=== PATIENT | female | born 1995 | race Caucasian/White ===

== ENCOUNTER 2019-10-25 15:23 | Emergency (ER) | payer OTHER, SELFPAY ==
[2019-10-25 15:30] VITALS: BP 125/82; PULSE 97; RESP 18; TEMP 37.1; O2SAT 98
--- NOTE | 2019-10-25 15:43 | ED.EAR ---
HPI - Ear Problem General Chief complaint: Ear Stated complaint: ear pain/pressure Time Seen by Provider: 10/25/19 15:38 Source: patient and RN notes reviewed Mode of arrival: ambulatory Limitations: no limitations History of Present Illness HPI Narrative: Patient presents today with a 3-day history of right ear pressure and echoing. Denies pain, decreased hearing, or drainage. She does report some intermittent congestion in the mornings, but denies rhinorrhea, sore throat, or any other sick symptoms. Reports occasional seasonal allergies, but Denies any this year.She has not tried any [id number] interventions prior to arrival. MD Complaint: other (Right ear pressure) Related Data Home Medications Medication Instructions Recorded Confirmed norelgestromin-ethin.estradiol 1 patch TRANSDERMAL WEEKLY 10/25/19 10/25/19 [Xulanmary] Allergies Allergy/AdvReac Type Severity Reaction Status Date / Time No Known Allergies Allergy Verified 10/25/19 15:37 Review of Systems Review of Systems: Narrative: CONSTITUTIONAL: Denies body aches, fever, chills, or sweats. EYES: Denies visual changes, redness, or discharge. ENT: Denies rhinorrhea, congestion, sore throat, or otalgia.+Right ear pressure and echoing CARDIOVASCULAR: Denies chest pain, palpitations, or edema. RESPIRATORY: Denies cough or dyspnea. GASTROINTESTINAL: Denies abdominal pain, nausea, vomiting, or diarrhea. GENITOURINARY: Denies dysuria or hematuria. SKIN: Denies rash, itching, or wounds. MUSCULOSKELETAL: Denies back pain, joint pain, or myalgia. NEUROLOGIC: Denies headache, numbness, tingling, or weakness. PSYCH: Denies depression or anxiety. PMFSH Social History Social History (Reviewed 10/25/19 @ 15:52 by Nikole Diaz, [facility], ) Smoking status: Current every day smoker Comments At time of signature, I have reviewed and agree with nursing past medical, surgical, social and family history unless otherwise noted. Please see nursing chart for further information. There is no relevant family history pertinent to the presenting complaint Exam Narrative: Exam Narrative: GENERAL: Well-appearing, well-nourished, and in no acute distress. HEAD: Normocephalic, atraumatic. EYES: EOMI. No redness or drainage. Conjunctivae normal. ENT: Mucous membranes pink and moist. Nares clear. No rhinorrhea. TMs normal bilaterally. Clear fluid collection behind right eardrum Without evidence of infection. Throat normal. Uvula midline. NECK: Normal AROM. Supple. No lymphadenopathy. CHEST: No respiratory distress. Clear to auscultation. HEART: Regular rate and rhythm. No murmur appreciated. Normal peripheral pulses. EXTREMITIES: Normal range of motion. No edema. SKIN: Warm, dry, no rash. Capillary refill normal. Normal skin turgor. NEURO: No focal deficits. Alert and oriented x3. Gait steady. PSYCH: Normal affect. No signs of depression or anxiety. Course Vital Signs Vital signs: Temp 98.8, RR 18, pulse 97, pulse ox 98% on room air, blood pressure 125/82. Reviewed. Pt has been instructed to follow up with her PCP regarding her elevated blood pressure today. Medical Decision Making Differential Diagnosis Differential Diagnosis: Otitis media, otitis externa, ruptured TM, serous otitis, eustachian tube dysfunction, cerumen impaction Critical Care Time Critical Care Time Critical Care Time: No Discharge Plan Discharge Clinical Impression: Acute dysfunction of right eustachian tube Patient Disposition: Home, Self-Care Condition: Stable Instructions: Serous Otitis Media (ED) Additional Instructions: You have a buildup of clear fluid behind your eardrum. Please use a steroid nasal spray Such as Flonase or Rhinocort. You may also try decongestant such as Sudafed to help clear the fluid from behind your eardrum. Please follow-up with your PCP with any worsening symptoms. Your blood pressure was elevated above 120/80 today at Urgent Care. This puts you
== END 2019-10-25 15:45 | disposition home or self-care (01) ==
PROVIDERS: Emergency Provider Nurse Practitioner
DX: H69.81 Other specified disorders of Eustachian tube, right ear (principal); F17.200 Nicotine dependence, unspecified, uncomplicated
CPT/HCPCS: 99211; G0463

== ENCOUNTER 2020-07-03 09:45 | Emergency (ER) | payer OTHER, SELFPAY ==
--- NOTE | 2020-07-03 10:02 | ED.FEMALEGU ---
HPI - Female Genitourinary General Chief complaint: Urogenital-Female Stated complaint: Urogenital-Female Time Seen by Provider: 07/03/20 10:29 Source: patient and RN notes reviewed Mode of arrival: ambulatory Limitations: no limitations History of Present Illness HPI Narrative: 24-year-old female presents with concern for urinary tract infection. She reports right low back pressure for 2 to 3 days. She reports 2 to 3-day history of pain. Reports pain is exacerbated by certain sitting positions, bending, twisting. She denies injury or trauma. She denies dysuria, hematuria, frequency, urgency. She started her menstrual period today. She reports she took Tylenol last night which mildly helped the pain. She denies any loss of bowel or bladder function, perianal anesthesia, nausea, vomiting, abdominal pain, weakness in any extremity. MD elicited complaint: UTI Related Data Home Medications Medication Instructions Recorded Confirmed sertraline 50 mg PO DAILY 07/03/20 07/03/20 Allergies Allergy/AdvReac Type Severity Reaction Status Date / Time No Known Allergies Allergy Verified 07/03/20 10:35 Review of Systems Review of Systems: Narrative: CONSTITUTIONAL: Denies malaise, chills, sweats, or fever. CARDIOVASCULAR: Denies chest pain, palpitations, or edema. RESPIRATORY: Denies cough or dyspnea. GASTROINTESTINAL: Denies abdominal pain, nausea, vomiting, diarrhea GENITOURINARY: Denies frequency, urgency, dysuria or hematuria. SKIN: Denies redness, bruising MUSCULOSKELETAL: Reports right low back pain. Denies myalgia. NEUROLOGIC: Denies numbness, weakness, or headache. All systems reviewed & are unremarkable except as noted in HPI and below PMFSH Social History Social History Smoking status: Current every day smoker Comments At time of signature, agree with nursing past medical, surgical, social and family history. There is no relevant family history pertinent to the presenting complaint Exam Narrative: Exam Narrative: GENERAL: Well-appearing, well-nourished, and in no acute distress. HEAD: Normocephalic, atraumatic. EYES: PERRLA and EOMI. NECK: Supple. No lymphadenopathy. CHEST: Clear to auscultation. No respiratory distress. HEART: Regular rate and rhythm. Distal pulses palpable and equal, cap refill <3 seconds ABDOMEN: Soft, nontender, nondistended, normal active bowel sounds, no palpable or pulsatile masses. No CVA tenderness MUSCULOSKELETAL: Normal range of motion and strength in all extremities; 5/5 strength with hip flexion and extension, dorsiflexion and extension, knee flexion and extension, plantar flexion and extension. Normal sensation in dermatomal distributions with sensitivity to light touch and pain. No midline back tenderness to palpation. No paraspinal tenderness. Transfers from lying to sitting to standing. SKIN: Warm, dry, no rash. No ecchymosis, erythema, open wounds to back. NEURO: No focal deficits. Alert and oriented x3. Reflexes intact. Normal gait. PSYCH: Normal mood and affect Course Course Emergency Course: Patient is aware of diagnosis, understands and agrees to treatment plan. Anticipatory guidance given. Patient agrees to follow-up as directed and is aware of reasons to seek care at the emergency department. Portions of this record may have been created with voice recognition software Vital Signs Vital signs: Vital Signs Temperature 97.8 F 07/03/20 10:10 Pulse Rate 81 07/03/20 10:10 Respiratory Rate 18 07/03/20 10:10 Blood Pressure 158/86 H 07/03/20 10:10 Pulse Oximetry 100 07/03/20 10:10 Temperature 97.8 F 07/03/20 10:10 Pulse Rate 81 07/03/20 10:10 Respiratory Rate 18 07/03/20 10:10 Blood Pressure 158/86 H 07/03/20 10:10 Pulse Oximetry 100 07/03/20 10:10 Reviewed. MDM - Female Genitourinary MDM Narrative Medical decision making narrative: Exam findings and UA show no acute con
[2020-07-03 10:10] VITALS: BP 158/86; PULSE 81; RESP 18; TEMP 36.6; O2SAT 100
== END 2020-07-03 11:02 | disposition home or self-care (01) ==
PROVIDERS: Emergency Provider Nurse Practitioner; PCP Nurse Practitioner Adult Health
DX: M54.5 Low back pain (principal); F41.9 Anxiety disorder, unspecified; F17.200 Nicotine dependence, unspecified, uncomplicated
CPT/HCPCS: 81003; 99213; G0463

== ENCOUNTER 2020-07-14 14:28 | Emergency (ER) | payer OTHER, SELFPAY ==
--- NOTE | ~2020-07-14 | XR_ITS ---
EXAMINATION: XR chest 2V EXAM DATE: 07/14/2020 15:07 INDICATION: Pleasant positive for COVID 07/11. Shortness of breath. TECHNIQUE: Frontal and lateral projections of the chest obtained and reviewed. There is no prior mark dy for comparison. FINDINGS: The lungs are clear. There are no pleural effusions. The cardiomediastinal silhouette is within normal limits. There is no pneumothorax suspected. The bones and soft tissues are unremarkab le. IMPRESSION: No acute cardiopulmonary findings. Reviewed, dictated and finalized at location A. ENT OUTREACH COORDINATOR
--- NOTE | 2020-07-14 14:31 | ED.SOB ---
HPI - SOB/Dyspnea General Chief Complaint: Shortness of Breath/Dyspnea Stated Complaint: Asthma issues with Covid Time Seen by Provider: 07/14/20 15:01 Source: patient and RN notes reviewed Mode of arrival: ambulatory Limitations: no limitations History of Present Illness HPI Narrative: 24-year-old female presents with concern for shortness of breath after testing positive for Covid. Reports she is 8 days into symptoms, began having shortness of breath yesterday. She reports shortness of breath only with exertion, not at rest. She denies fever, body aches, chills, sweats, loss of taste or smell. Reports mild nasal congestion. MD elicited complaint: shortness of breath Related Data Home Medications Medication Instructions Recorded Confirmed sertraline 50 mg PO DAILY 07/03/20 07/14/20 Allergies Allergy/AdvReac Type Severity Reaction Status Date / Time No Known Allergies Allergy Verified 07/14/20 14:54 Review of Systems Review of Systems: Narrative: CONSTITUTIONAL: Denies malaise, chills, sweats, or fever. EYES: Denies visual changes, redness, or discharge. ENT: Reports rhinorrhea, congestion. Denies sinus pain, otalgia and sore throat. CARDIOVASCULAR: Denies chest pain, palpitations, or edema. RESPIRATORY: Reports cough, exertional dyspnea. GASTROINTESTINAL: Denies abdominal pain, nausea, vomiting, diarrhea SKIN: Denies rash or itching. MUSCULOSKELETAL: Denies myalgia. NEUROLOGIC: Denies headache. All systems reviewed & are unremarkable except as noted in HPI and below PMFSH Social History Social History Smoking status: Current every day smoker Comments At time of signature, agree with nursing past medical, surgical, social and family history. There is no relevant family history pertinent to the presenting complaint Exam Narrative: Exam Narrative: GENERAL: Well-appearing, well-nourished, and in no acute distress. HEAD: Normocephalic EYES: PERRLA, conjunctivae clear ENT: Nares clear. Mucous membranes moist. NECK: Supple. No lymphadenopathy CHEST: Clear to auscultation, breath sounds equal. No wheezing, rhonchi, rales, or stridor. No respiratory distress, speaks in full sentences. HEART: Regular rate and rhythm. No murmur heard. SKIN: Warm, dry, no rash. NEURO: Alert and oriented x3. PSYCH: Normal mood and affect Course Course Emergency Course: Patient is aware of diagnosis, understands and agrees to treatment plan. Anticipatory guidance given. Patient agrees to follow-up as directed and is aware of reasons to seek care at the emergency department. Portions of this record may have been created with voice recognition software Vital Signs Vital signs: Vital Signs Temperature 98.1 F 07/14/20 14:38 Pulse Rate 93 07/14/20 14:38 Respiratory Rate 20 07/14/20 14:38 Blood Pressure 133/87 07/14/20 14:38 Pulse Oximetry 96 07/14/20 14:38 Temperature 98.1 F 07/14/20 14:38 Pulse Rate 93 07/14/20 14:38 Respiratory Rate 20 07/14/20 14:38 Blood Pressure 133/87 07/14/20 14:38 Pulse Oximetry 96 07/14/20 14:38 Reviewed. MDM - SOB/Dyspnea MDM Narrative Medical decision making narrative: Differential diagnosis considered: Francis virus, strep pharyngitis, allergic rhinitis, upper respiratory tract infection, sinusitis, rhinosinusitis, nasopharyngitis. viral pharyngitis, otitis media, otitis externa, pneumonia, bronchitis, viral cough syndrome, viral syndrome, and influenza. Exam findings show no acute concerns or changes; patient is non-toxic appearing and is in no distress. Patient is appropriate for outpatient treatment and follow-up. Imaging Data My impression: Images reviewed, interpreted by radiologist, agree, see report. Radiologist's impression: EXAMINATION: XR chest 2V EXAM DATE: 07/14/2020 15:07 INDICATION: Pleasant positive for COVID 20. Shortness of breath. TECHNIQUE: Frontal and lateral projections of the arun
[2020-07-14 14:38] VITALS: BP 133/87; PULSE 93; RESP 20; TEMP 36.7; O2SAT 96
== END 2020-07-14 15:30 | disposition home or self-care (01) ==
PROVIDERS: Emergency Provider Nurse Practitioner; PCP Nurse Practitioner Adult Health
DX: R06.02 Shortness of breath (principal); B94.8 Sequelae of other specified infectious and parasitic diseases; F17.200 Nicotine dependence, unspecified, uncomplicated; F41.9 Anxiety disorder, unspecified
CPT/HCPCS: 71046; 99213; G0463

== ENCOUNTER 2020-08-08 18:32 | Emergency (ER) | payer OTHER, SELFPAY ==
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
[2020-08-08 18:48] VITALS: BP 166/99; PULSE 96; RESP 20; TEMP 37.6; O2SAT 99
== END 2020-08-08 19:43 | disposition home or self-care (01) ==
PROVIDERS: Emergency Provider Nurse Practitioner Family; PCP Nurse Practitioner Adult Health
DX: Z04.1 Encounter for examination and observation following transport accident (principal); M25.532 Pain in left wrist; M54.6 Pain in thoracic spine; F41.9 Anxiety disorder, unspecified
CPT/HCPCS: 72072; 73110; 99214; G0463

== ENCOUNTER 2021-02-27 09:29 | Emergency (ER) | payer OTHER, SELFPAY ==
[2021-02-27 09:44] VITALS: BP 146/89; PULSE 91; RESP 14; TEMP 36.6; O2SAT 98
--- NOTE | 2021-02-27 10:55 | ED.DENTAL ---
HPI - Dental/Oral General Chief complaint: Dental/Oral Stated complaint: tooth pain Source: patient Mode of arrival: ambulatory Limitations: no limitations History of Present Illness HPI Narrative: Patient is a 25-year-old female who presents complaining of right lower dental pain x3 to 4 days. She reports noting an abscess yesterday that she reports ruptured. She denies fever or systemic complaints. She denies significant medical history. Patient also requesting list of dental offices. She denies taking [id number] medications prior to arrival. MD Complaint: tooth pain Related Data Home Medications Medication Instructions Recorded Confirmed sertraline 50 mg PO DAILY 07/03/20 02/27/21 Allergies Allergy/AdvReac Type Severity Reaction Status Date / Time No Known Allergies Allergy Verified 02/27/21 10:12 Review of Systems Review of Systems: CONSTITUTIONAL: Denies fever, chills, or sweats. EYES: Denies visual changes, redness, or discharge. ENT: Denies rhinorrhea, congestion, sore throat, or otalgia. Reports right lower dental pain CARDIOVASCULAR: Denies chest pain, palpitations, or edema. RESPIRATORY: Denies cough or dyspnea. GASTROINTESTINAL: Denies abdominal pain, nausea, vomiting, or diarrhea. GENITOURINARY: Denies dysuria or hematuria. SKIN: Denies rash or itching. MUSCULOSKELETAL: Denies back pain, joint pain, or myalgia. NEUROLOGIC: Denies headache, numbness, dizziness, or weakness. PSYCHIATRIC: Denies anxiety or depression. [facility] Past Medical History Medical History Anxiety Social History Social History (Updated 02/27/21 @ 11:00 by INDIA Hager) Smoking status: Current every day smoker Alcohol intake: current Alcohol use details: Occasional Substance use: never Living arrangements: with family Comments At the time of signature, I have reviewed and agree with nursing past medical, surgical, social, and family history unless otherwise noted. Please see nursing chart for further information. There is no relevant family history pertinent to the presenting complaint. Exam Narrative: GENERAL: Well-appearing, well-nourished, and in no acute distress. HEAD: Normocephalic, atraumatic. EYES: EOMI. No redness or drainage. Conjunctiva are normal. ENT: Mucous membranes pink and moist. Periapical abscess noted to right lower wisdom tooth. CHEST: No respiratory distress. HEART: Regular rate and rhythm. EXTREMITIES: Normal range of motion. No edema. SKIN: Warm, dry, no rash. NEURO: No focal deficits. Alert and oriented x3. Gait steady. PSYCH: Normal affect. No signs of depression or anxiety. Course Vital Signs Vital signs: Vital Signs Temperature 36.6 C 02/27/21 09:44 Pulse Rate 91 02/27/21 09:44 Respiratory Rate 14 02/27/21 09:44 Blood Pressure 146/89 H 02/27/21 09:44 Pulse Oximetry 98 02/27/21 09:44 Temperature 36.6 C 02/27/21 09:44 Pulse Rate 91 02/27/21 09:44 Respiratory Rate 14 02/27/21 09:44 Blood Pressure 146/89 H 02/27/21 09:44 Pulse Oximetry 98 02/27/21 09:44 At the time of signature, I have reviewed and agree with nursing past medical, surgical, social, and family history unless otherwise noted. Please see nursing chart for further information. There is no relevant family history pertinent to the presenting complaint. MDM - Dental/Oral MDM Narrative Medical decision making narrative: Patient has poor dentition. Multiple caries dental caries noted. Dental abscess noted to right lower wisdom tooth. Patient be started on antibiotics at this time. List of dental referrals given. Patient stable for discharge home with outpatient follow-up as needed. Differential Diagnosis Differential diagnosis: Likely gingival abscess, dental caries, toothache, dental abscess and fracture of tooth Critical Care Time Critical Care Time Critical Care Time: No Discharge Plan Dischar
== END 2021-02-27 11:05 | disposition home or self-care (01) ==
PROVIDERS: Emergency Provider Nurse Practitioner; PCP Nurse Practitioner Adult Health
DX: K04.7 Periapical abscess without sinus (principal); F17.200 Nicotine dependence, unspecified, uncomplicated; F41.9 Anxiety disorder, unspecified
CPT/HCPCS: 99213; G0463

== ENCOUNTER 2022-01-12 17:50 | Emergency (ER) | payer OTHER, SELFPAY ==
[2022-01-12 17:58] VITALS: BP 130/85; PULSE 100; RESP 16; TEMP 36.9; O2SAT 100
--- NOTE | 2022-01-12 18:27 | ED.GENADULT ---
HPI - General Adult General Chief complaint: Urogenital-Female Stated complaint: Possible yeast infection Source: patient Mode of arrival: ambulatory Limitations: no limitations History of Present Illness HPI narrative: Patient presents for evaluation of vaginal irritation and discharge for the last 2 days. She reports vaginal pruritus and feels like her skin is falling off . She reports a warm sensation. Vaginal discharge is white in appearance. She denies any vaginal bleeding. No urinary symptoms. No fever, chills, nausea, vomiting, abdominal or back pain. She is sexually active with 1 male partner, never using condoms. He is asymptomatic. LMP last week. She is not on contraception. No hx of STI. She applied some triamcinolone cream to her external genitalia and indicates it almost immediately alleviated the burning sensation she experienced in her genital region. Related Data Home Medications Medication Instructions Recorded Confirmed sertraline 50 mg tablet 50 mg PO DAILY 07/03/20 01/12/22 sertraline 25 mg tablet 25 mg PO DAILY 01/12/22 01/12/22 Allergies Allergy/AdvReac Type Severity Reaction Status Date / Time No Known Allergies Allergy Verified 01/12/22 18:16 Review of Systems Review of Systems: CONSTITUTIONAL: Denies fever, chills, or sweats. EYES: Denies visual changes, redness, or discharge. ENT: Denies rhinorrhea, congestion, sore throat, or otalgia. CARDIOVASCULAR: Denies chest pain, palpitations, or edema. RESPIRATORY: Denies cough or dyspnea. GASTROINTESTINAL: Denies abdominal pain, nausea, vomiting, or diarrhea. GENITOURINARY: Reports vaginal pruritus, burning sensation, warm sensation and white discharge. Denies vaginal bleeding. Denies any urinary symptoms SKIN: Denies rash or itching. MUSCULOSKELETAL: Denies back pain, joint pain, or myalgia. NEUROLOGIC: Denies headache, numbness, dizziness, or weakness. PSYCHIATRIC: Denies anxiety or depression. [facility] Past Medical History Medical History Anxiety Surgical History Surgical History No pertinent past surgical history Family History Family History Mother Family history non-contributory Social History Social History Smoking status: Current every day smoker Tobacco type: e-cigarettes/vaping Alcohol intake: current Alcohol use details: Occasional Substance use: never Living arrangements: with family Gender identity (if verbalized by the patient): Female Sexual Orientation (if Verbalized by the Patient): Straight or Heterosexual Spiritual care concerns: No Exam Narrative: GENERAL: Well-appearing, well-nourished, and in no acute distress. HEAD: Normocephalic, atraumatic. EYES: PERRLA and EOMI. ENT: Nares clear, no rhinorrhea or epistaxis. Mucous membranes moist. Oropharynx without tonsillar hypertrophy exudate or other lesions. Bilateral TMs pearly muñoz nonbulging NECK: Supple. No adenopathy or masses. No carotid bruits or JVD CHEST: Clear to auscultation. No respiratory distress. No wheezes rales or rhonchi HEART: Regular rate and rhythm. No murmur heard. Normal peripheral pulses. ABDOMEN: Soft, nontender, nondistended, normal active bowel sounds. GENITAL: No external genital lesions. No adnexal tenderness. No cervical motion tenderness. Small amount of thick mucus consistent white drainage in vaginal vault. Cervical os friable EXTREMITIES: Normal range of motion. No edema. SKIN: Warm, dry, no rash. NEURO: No focal deficits. Alert and oriented x3. PSYCH: Normal mood and affect. Course Course Emergency Course: This is a 26-year-old female who presented for evaluation of vaginal discharge. We discussed risks versus benefits of treating for STIs today versus waiting
--- NOTE | 2022-01-12 19:04 | PC.NURSE ---
NO URINE CULTURE PER PROVIDER.
[2022-01-12] MEDS: cefTRIAXone 500 MG, LIDOCAINE HCL 1% LOCAL INJ 1 ML IM (19:15)
== END 2022-01-12 19:35 | disposition home or self-care (01) ==
PROVIDERS: Emergency Provider Nurse Practitioner; PCP Family Medicine
DX: N76.0 Acute vaginitis (principal); F17.290 Nicotine dependence, other tobacco product, uncomplicated; F41.9 Anxiety disorder, unspecified
CPT/HCPCS: 81003; 81025; 87070; 87147; 87491; 87591; 87661; 96372; 99214; G0463; J0696

== ENCOUNTER 2022-06-03 17:06 | Emergency (ER) | payer OTHER, SELFPAY ==
[2022-06-03 17:18] VITALS: BP 132/77; PULSE 100; RESP 20; TEMP 36.9; O2SAT 99
--- NOTE | 2022-06-03 18:46 | ED.EYEPROB ---
HPI - Eye Problem General Chief complaint: Eye Problems Stated complaint: Eye Problem Time Seen by Provider: 06/03/22 18:46 Source: patient, RN notes reviewed and old records reviewed Mode of arrival: ambulatory Limitations: no limitations History of Present Illness HPI Narrative: 26 year old female [facility] with complaints of Left eye redness with irritation and yellow/greenish drainage for past 2 days with itching. Patient reports that she has been using OTC Visine and pink eye gtts. Patient denies any sharp pain to her eyes, visual acuity right 20/50, Left 20/40 without corrective lens. Patient reports that right eye was bad last week but got better.Patient denies any fevers nasal congestion or any other ill symptoms. MD chief complaint: eye redness and other (Drainage) Onset (ago): day(s) (2) Location: left eye Treatments Prior to Arrival: OTC eye drops Related Data Home Medications Medication Instructions Recorded Confirmed sertraline 50 mg tablet 50 mg PO DAILY 07/03/20 06/03/22 Allergies Allergy/AdvReac Type Severity Reaction Status Date / Time No Known Allergies Allergy Verified 06/03/22 17:50 Review of Systems Review of Systems: CONSTITUTIONAL: Denies fever, chills, or sweats. EYES: Denies visual changes. Reports redness,, irritation,yellow green discharge left eye with itching ENT: Denies rhinorrhea, congestion, sore throat, or otalgia. CARDIOVASCULAR: Denies chest pain, palpitations, or edema. RESPIRATORY: Denies cough or dyspnea. SKIN: Denies rash or itching. NEUROLOGIC: Denies headache All systems reviewed & are unremarkable except as noted in HPI and below PMFSH Past Medical History Medical History Anxiety Surgical History Surgical History No pertinent past surgical history Family History Family History Mother Family history non-contributory Social History Social History (Updated 06/14/22 @ 22:11 by Arabella Friemdan NP) Smoking status: Current every day smoker Tobacco type: e-cigarettes/vaping Alcohol intake: current Alcohol use details: Occasional Substance use type: marijuana Gender identity (if verbalized by the patient): Female Sexual Orientation (if Verbalized by the Patient): Straight or Heterosexual Spiritual care concerns: No Comments At time of signature, agree with nursing past medical, surgical, social and family history. There is no relevant family history pertinent to the presenting complaint Exam Narrative: GENERAL: Well-appearing, well-nourished, and in no acute distress. HEAD: Normocephalic, atraumatic. EYES: PERRLA and EOMI. Upper and lower eyelids unremarkable. No periorbital cellulitis noted. Sclera and conjunctivae injected left eye, with yellow/greenish drainage and itching.Denies any sharp pain to eyes or visual changes ENT: Nares clear, no rhinorrhea or epistaxis. Mucous membranes moist. NECK: Supple.no lymphadenopathy CHEST: Clear to auscultation. No respiratory distress.SAO2 99% on room air HEART: Regular rate and rhythm. No murmur heard. Normal peripheral pulses. SKIN: Warm, dry, no rash. NEURO: No focal deficits. Alert and oriented x3. Course Course Emergency Course: Patient is aware of diagnosis, understands and agrees to treatment plan. Anticipatory guidance given. Patient agrees to follow-up as directed and is aware of reasons to seek care at the emergency department. Portions of this record may have been created with voice recognition software Level of Care: Express Care Visit Vital Signs Vital signs: Vital Signs Temperature 36.9 C 06/03/22 17:18 Pulse Rate 100 06/03/22 17:18 Respiratory Rate 20 06/03/22 17:18 Blood Pressure 132/77 06/03/22 17:18 Pulse Oximetry 99 06/03/22 17:18 Oxygen Delivery Room Air 06/03/22 17:18 T
== END 2022-06-03 18:55 | disposition home or self-care (01) ==
PROVIDERS: Emergency Provider Registered Nurse; PCP Family Medicine
DX: H10.32 Unspecified acute conjunctivitis, left eye (principal); F17.290 Nicotine dependence, other tobacco product, uncomplicated; F12.90 Cannabis use, unspecified, uncomplicated; F41.9 Anxiety disorder, unspecified
CPT/HCPCS: 99213; G0463

== ENCOUNTER 2022-07-09 15:18 | Emergency (ER) | payer OTHER, SELFPAY ==
[2022-07-09 15:37] VITALS: BP 146/79; PULSE 80; RESP 16; TEMP 36.8; O2SAT 98
--- NOTE | 2022-07-09 15:49 | ED.URI ---
HPI - URI/Sore Throat General Chief Complaint: Upper Respiratory Infection Stated Complaint: Sore Throat Time Seen by Provider: 07/09/22 15:49 Source: patient Mode of arrival: ambulatory Limitations: no limitations History of Present Illness HPI Narrative: 26-year-old female presents with complaint of sore throat, fatigue, headaches, body aches, chills for 3 days. Afebrile. Denies nausea vomiting diarrhea. Reports strep exposure from her cousin To she was drinking after. All systems reviewed and negative except as noted above. Related Data Home Medications Medication Instructions Recorded Confirmed sertraline 50 mg tablet 50 mg PO DAILY 07/03/20 07/09/22 Allergies Allergy/AdvReac Type Severity Reaction Status Date / Time No Known Allergies Allergy Verified 07/09/22 15:46 Review of Systems Review of Systems: CONSTITUTIONAL: Denies fever, chills, or sweats. Reports fatigue. EYES: Denies visual changes, redness, or discharge. ENT: Denies rhinorrhea, congestion. Reports sore throat. denies otalgia. CARDIOVASCULAR: Denies chest pain, palpitations, or edema. RESPIRATORY: Denies cough or dyspnea. GASTROINTESTINAL: Denies abdominal pain, nausea, vomiting, or diarrhea. GENITOURINARY: Denies dysuria or hematuria. SKIN: Denies rash or itching. MUSCULOSKELETAL: Denies back pain, joint pain, or myalgia. NEUROLOGIC: reports headache. Denies numbness, or weakness. PSYCHIATRIC: Denies anxiety or depression. All other systems reviewed are negative, except as documented in HPI. [facility] Past Medical History Medical History Anxiety Surgical History Surgical History No pertinent past surgical history Family History Family History Mother Family history non-contributory Social History Social History (Updated 06/14/22 @ 22:11 by Arabella Friedman NP) Smoking status: Current every day smoker Tobacco type: e-cigarettes/vaping Alcohol intake: current Alcohol use details: Occasional Substance use type: marijuana Gender identity (if verbalized by the patient): Female Sexual Orientation (if Verbalized by the Patient): Straight or Heterosexual Spiritual care concerns: No Comments At time of signature, agree with nursing past medical, surgical, social and family history. There is no relevant family history pertinent to the presenting complaint. Exam Narrative: GENERAL: This is a well-nourished, well-developed patient, in no apparent distress. HEAD: normocephalic, atraumatic. EYES: PERRL. Sclera clear/white. Vision is grossly intact. EARS: External ears normal, auditory canals clear and without drainage, TMs normal without perforation. Hearing grossly intact. NOSE: External nose normal with no obvious nasal discharge, nares without redness, no rhinorrhea. THROAT: Mucous membranes moist, erythema, tonsils 3+ bilaterally without exudate NECK: Neck supple, non-tender without lymphadenopathy, masses or thyromegaly. CARDIOVASCULAR: Regular rate and rhythm without murmurs, gallops, or rubs. RESPIRATORY: Clear to auscultation. Breath sounds equal bilaterally. No wheezes, rales, or rhonchi. SKIN: warm, Dry, intact with no suspicious lesions or rash, good texture and turgor. NEURO: awake, alert, and oriented to person, place and time. Course Course Level of Care: Express Care Visit Vital Signs Vital signs: Vital Signs Temperature 36.8 C 07/09/22 15:37 Pulse Rate 80 07/09/22 15:37 Respiratory Rate 16 07/09/22 15:37 Blood Pressure 146/79 H 07/09/22 15:37 Pulse Oximetry 98 07/09/22 15:37 Oxygen Delivery Room Air 07/09/22 15:37 Temperature 36.8 C 07/09/22 15:37 Pulse Rate 80 07/09/22 15:37 Respiratory Rate 16 07/09/22 15:37 Blood Pressure 146/79 H 07/09/22 15:37 Pulse Oximetry 98 07/09/22 15:37 Ox
== END 2022-07-09 16:03 | disposition home or self-care (01) ==
PROVIDERS: Emergency Provider Nurse Practitioner Family; PCP Family Medicine
DX: J02.0 Streptococcal pharyngitis (principal); F17.290 Nicotine dependence, other tobacco product, uncomplicated; F41.9 Anxiety disorder, unspecified
CPT/HCPCS: 87880; 99213; G0463

== ENCOUNTER 2022-11-18 17:33 | Emergency (ER) | payer OTHER, SELFPAY ==
[2022-11-18 17:48] VITALS: BP 155/88; PULSE 100; RESP 20; TEMP 37.1; O2SAT 100
--- NOTE | 2022-11-18 18:12 | ED.DENTAL ---
HPI - Dental/Oral General Chief complaint: Dental/Oral Stated complaint: tooth pain Source: patient Mode of arrival: ambulatory Limitations: no limitations History of Present Illness HPI Narrative: Patient presents for evaluation of right lower dental pain. She has a known dental fracture and an impacted wisdom tooth. She indicates she has pain intermittently over the past several years. The last 2-3 days pain has returned. She rates her pain 7/10 severity, without descriptive quality. No fever, chills, trismus, problems handling secretions, drainage. In the past ibuprofen has been helpful. She does not feel abx necessary as they have not been in the past. Furthermore, she had some leftover abx and took two doses without improvement in her symptoms. States no chance of . She uses electronic cigarette and also smokes marijuana. Related Data Home Medications Medication Instructions Recorded Confirmed sertraline 50 mg tablet 50 mg PO DAILY 07/03/20 11/18/22 Allergies Allergy/AdvReac Type Severity Reaction Status Date / Time No Known Allergies Allergy Verified 11/18/22 18:02 Review of Systems Review of Systems: CONSTITUTIONAL: Denies fever, chills, or sweats. EYES: Denies visual changes, redness, or discharge. ENT: Reports right lower dental pain. Denies rhinorrhea, congestion, sore throat, or otalgia. CARDIOVASCULAR: Denies chest pain, palpitations, or edema. RESPIRATORY: Denies cough or dyspnea. GASTROINTESTINAL: Denies abdominal pain, nausea, vomiting, or diarrhea. GENITOURINARY: Denies dysuria or hematuria. SKIN: Denies rash or itching. MUSCULOSKELETAL: Denies back pain, joint pain, or myalgia. NEUROLOGIC: Denies headache, numbness, dizziness, or weakness. PSYCHIATRIC: Denies anxiety or depression. [facility] Past Medical History Medical History Anxiety Surgical History Surgical History No pertinent past surgical history Family History Family History Mother Family history non-contributory Social History Social History Smoking status: Current every day smoker Tobacco type: e-cigarettes/vaping Alcohol intake: current Alcohol use details: Occasional Substance use type: marijuana Living arrangements: with family Gender identity (if verbalized by the patient): Female Sexual Orientation (if Verbalized by the Patient): Straight or Heterosexual Spiritual care concerns: No Exam Narrative: GENERAL: Well-appearing, well-nourished, and in no acute distress. HEAD: Normocephalic, atraumatic. EYES: PERRLA and EOMI. ENT: Nares clear, no rhinorrhea or epistaxis. Mucous membranes moist. Oropharynx without tonsillar hypertrophy exudate or other lesions. Tooth number 31 is fractured. There is no visible or palpable abscess. Bilateral TMs pearly muñoz nonbulging NECK: Supple. No adenopathy or masses. No carotid bruits or JVD CHEST: Clear to auscultation. No respiratory distress. No wheezes rales or rhonchi HEART: Regular rate and rhythm. No murmur heard. Normal peripheral pulses. ABDOMEN: Soft, nontender, nondistended, normal active bowel sounds. EXTREMITIES: Normal range of motion. No edema. SKIN: Warm, dry, no rash. NEURO: No focal deficits. Alert and oriented x3. PSYCH: Normal mood and affect. Course Course Emergency Course: This is a 26 year old female who presented for evaluation of right lower dental pain. She simply requested a prescription for ibuprofen 600 mg. There is no visible or palpable abscess. I offered to give her a script for abx in event she has an early infection. She declined. Follow up with dentist. Advised on smoking cessation. Go to ER for worsening symptoms. Pt in agreement with plan of care. Level of Care: E
== END 2022-11-18 18:15 | disposition home or self-care (01) ==
PROVIDERS: Emergency Provider Nurse Practitioner; PCP Family Medicine
DX: S02.5XXA Fracture of tooth (traumatic), initial encounter for closed fracture (principal); F41.9 Anxiety disorder, unspecified; F17.219 Nicotine dependence, cigarettes, with unspecified nicotine-induced disorders; X58.XXXA Exposure to other specified factors, initial encounter
CPT/HCPCS: 99213; G0463

== ENCOUNTER 2022-12-18 16:14 | Emergency (ER) | payer OTHER, SELFPAY ==
[2022-12-18 16:23] VITALS: BP 125/75; PULSE 93; RESP 16; TEMP 36.6; O2SAT 98
--- NOTE | 2022-12-18 16:36 | ED.FEMALEGU ---
HPI - Female Genitourinary General Chief complaint: Urogenital-Female Stated complaint: Urinary Problem Source: patient and RN notes reviewed Limitations: no limitations History of Present Illness HPI Narrative: Patient is a 26-year-old female who presents to the [facility] with an odor to her urine for the past 3-4 days. Patient denies dysuria, hematuria, urinary frequency, and urinary urgency. She denies flank pain or abdominal pain. Denies recent fevers. States that there is a chance for . Related Data Home Medications Medication Instructions Recorded Confirmed sertraline 50 mg tablet 50 mg PO DAILY 07/03/20 12/18/22 Allergies Allergy/AdvReac Type Severity Reaction Status Date / Time No Known Allergies Allergy Verified 11/18/22 18:02 Review of Systems Review of Systems: CONSTITUTIONAL: Denies fever, chills, or sweats. EYES: Denies visual changes, redness, or discharge. ENT: Denies otalgia and sore throat CARDIOVASCULAR: Denies chest pain, palpitations, or edema. RESPIRATORY: Denies cough or dyspnea. GASTROINTESTINAL: Denies abdominal pain, nausea, vomiting, or diarrhea. GENITOURINARY: Denies dysuria or hematuria. Reports odor to urine. SKIN: Denies rash or itching. MUSCULOSKELETAL: Denies back pain, joint pain, or myalgia. NEUROLOGIC: Denies headache, numbness, or weakness. Pertinent positives per HPI. [facility] Past Medical History Medical History Anxiety Surgical History Surgical History No pertinent past surgical history Family History Family History Mother Family history non-contributory Social History Social History Smoking status: Current every day smoker Tobacco type: e-cigarettes/vaping Alcohol intake: current Alcohol use details: Occasional Substance use type: marijuana Living arrangements: with family Gender identity (if verbalized by the patient): Female Sexual Orientation (if Verbalized by the Patient): Straight or Heterosexual Spiritual care concerns: No Comments At the time of my signature, I reviewed and agree with the nursing past medical, surgical, social, and family history. There is no relevant family history pertinent to the patient complaint. Exam Narrative: GENERAL: This is a well-nourished, well-developed patient, in no apparent distress. HEAD: normocephalic, atraumatic. EYES: Sclera clear/white. Vision is grossly intact. EARS: External ears normal. Hearing grossly intact. NOSE: External nose normal with no obvious nasal discharge, nares without redness, no rhinorrhea. THROAT: Mucous membranes moist, posterior pharynx clear. NECK: Neck supple, non-tender without lymphadenopathy, masses or thyromegaly. CARDIOVASCULAR: Regular rate and rhythm without murmurs, gallops, or rubs. RESPIRATORY: Clear to auscultation. Breath sounds equal bilaterally. No wheezes, rales, or rhonchi. GASTROINTESTINAL: Abdomen soft, non-tender, nondistended. Bowel sounds are active. No hepato-splenomegaly, or palpable masses. No guarding. SKIN: warm, intact with no suspicious lesions or rash, good texture and turgor. NEURO: awake, alert, and oriented to person, place and time. There were no obvious focal neurologic abnormalities. BACK: Nontender without deformity or crepitance. No flank tenderness. Course Course Level of Care: Express Care Visit Vital Signs Vital signs: Vital Signs Temperature 97.9 F 12/18/22 16:23 Pulse Rate 93 12/18/22 16:23 Respiratory Rate 16 12/18/22 16:23 Blood Pressure 125/75 12/18/22 16:23 Pulse Oximetry 98 12/18/22 16:23 Oxygen Delivery Room Air 12/18/22 16:23 Temperature 97.9 F 12/18/22 16:23 Pulse Rate 93 12/18/22 16:23 Respiratory Rate 16 12/18/22 16:23 Blood Pressure 1
== END 2022-12-18 16:47 | disposition home or self-care (01) ==
PROVIDERS: Emergency Provider Nurse Practitioner; PCP Nurse Practitioner Family
DX: R82.998 Other abnormal findings in urine (principal); F17.290 Nicotine dependence, other tobacco product, uncomplicated; F41.9 Anxiety disorder, unspecified
CPT/HCPCS: 81003; 81025; 99212; G0463

== ENCOUNTER 2023-05-22 10:53 | Emergency (ER) | payer OTHER, SELFPAY ==
--- NOTE | 2023-05-22 10:57 | ED.EAR ---
HPI - Ear Problem General Chief complaint: Ear Stated complaint: Right Ear Problem Time Seen by Provider: 05/22/23 10:55 Source: patient Mode of arrival: ambulatory Limitations: no limitations History of Present Illness HPI Narrative: Maya is a 27-year-old female patient presenting to the clinic today with complaints of right ear feeling muffled and clogged. States this been going on for few days now. Has been having URI symptoms for the past week. Related Data Home Medications Medication Instructions Recorded Confirmed sertraline 50 mg tablet 50 mg PO DAILY 07/03/20 05/22/23 Allergies Allergy/AdvReac Type Severity Reaction Status Date / Time No Known Allergies Allergy Verified 05/22/23 11:01 Review of Systems Review of Systems: Pertinent positives per HPI. Patient denies any fever, chills, rash, headache, visual changes, dizziness, cough, runny nose, sore throat, shortness of breath, chest pain, palpitations, nausea, vomiting, diarrhea, constipation, abdominal pain, or any urinary issues. PMFSH Past Medical History Medical History Anxiety Surgical History Surgical History No pertinent past surgical history Family History Family History Mother Family history non-contributory Social History Social History Smoking status: Current every day smoker Tobacco type: e-cigarettes/vaping Alcohol intake: current Alcohol use details: Occasional Substance use type: marijuana Living arrangements: with family Gender identity (if verbalized by the patient): Female Sexual Orientation (if Verbalized by the Patient): Straight or Heterosexual Spiritual care concerns: No Comments At the time of my signature, I reviewed and agree with the nursing past medical, surgical, social, and family history. There is no relevant family history pertinent to the patient complaint. Exam Narrative: General: Well-developed, well nourished, in no apparent distress Head: Normocephalic, atraumatic Eyes: Pupils equally round and reactive to light bilaterally, EOM intact, sclera and conjunctive clear, no discharge, lids normal Ears: Left tMs intact and clear, right TM intact, bulging, opaque, ear canals clear, no drainage, grossly hearing normal. Nose: Nares patent, no discharge, no inflammation, no sinus tenderness. Mouth: Oral pharynx without lesions or masses, good dentition, MMM. Neck: Supple, trachea midline, no enlargement of anterior or posterior cervical nodes, no thyroid masses or goiter palpable. Cardio: Regular rate and rhythm, s1 and s2 normal, no murmur appreciated. Resp: Clear to auscultation bilaterally, no rhonchi, rales, wheezing or rubs Course Course Emergency Course: Portions of this record may have been created with voice recognition software. Level of Care: Express Care Visit Vital Signs Vital signs: Vital signs reviewed Medical Decision Making MDM Narrative Medical decision making narrative: At the time of visit patient is resting comfortably on the exam table. I suspect patient has a right eustachian tube dysfunction. Prescription for prednisone was sent to the pharmacy and supportive measures were discussed with the patient she voiced understanding discharge instructions and agrees to treatment plan. Return precautions were reviewed Differential Diagnosis Differential Diagnosis: Otitis media, otitis externa, eustachian tube dysfunction, upper respiratory infection, cerumen impaction Discharge Plan Discharge Clinical Impression: ETD (eustachian tube dysfunction) Qualifiers: Laterality: right Qualified Code(s): H69.91 - Unspecified Eustachian tube disorder, right ear Patient Disposition: Home, Self-Care Condition: Stable In
[2023-05-22 10:58] VITALS: BP 151/102; PULSE 97; RESP 18; TEMP 36.8; O2SAT 98
[2023-05-22 11:01] VITALS: BP 151/102; PULSE 97; RESP 18; TEMP 36.8; O2SAT 98
== END 2023-05-22 11:11 | disposition home or self-care (01) ==
PROVIDERS: Emergency Provider Nurse Practitioner Family; PCP Family Medicine
DX: H69.91 Unspecified Eustachian tube disorder, right ear (principal); Z87.891 Personal history of nicotine dependence; F41.9 Anxiety disorder, unspecified
CPT/HCPCS: 99213; G0463

== ENCOUNTER 2023-06-05 13:24 | Emergency (ER) | payer OTHER, SELFPAY ==
[2023-06-05 13:30] VITALS: BP 132/72; PULSE 99; RESP 16; TEMP 36.8; O2SAT 98
--- NOTE | 2023-06-05 13:41 | ED.GENADULT ---
HPI - General Adult General Chief complaint: Urogenital-Female Stated complaint: Urinary Problem Source: patient, RN notes reviewed and old records reviewed Mode of arrival: ambulatory Limitations: no limitations History of Present Illness HPI narrative: 27-year-old female presents to our [facility] with complaint of burning with urination with frequency and urgency that started yesterday. Patient denies back pain, fever, vomiting. MD complaint: Dysuria Onset (ago): day(s) (1) Related Data Home Medications Medication Instructions Recorded Confirmed sertraline 50 mg tablet 50 mg PO DAILY 07/03/20 06/05/23 Allergies Allergy/AdvReac Type Severity Reaction Status Date / Time No Known Allergies Allergy Verified 05/22/23 11:01 Review of Systems Constitutional: Constitutional: Reports no additional constitutional complaints, Denies body ache(s), Denies chills, Denies fatigue, Denies fever(s) and Denies headache(s) Eyes: Eyes: Reports no additional eye complaints and Denies blurry vision ENT: Reports system reviewed and no additional complaints, except as documented, Denies vertigo, Denies dizziness, Denies ear discharge, Denies otalgia, Denies facial pain, Denies headache(s), Denies nasal congestion, Denies nasal discharge, Denies sinus pain, Denies sinus pressure and Denies sore throat Cardiovascular: Cardiovascular: Reports no additional cardiovascular complaints, Denies chest pain, Denies chest pain at rest, Denies rapid heart rate and Denies dyspnea Respiratory: Respiratory: Reports no additional respiratory complaints, Denies chest congestion, Denies cough, Denies pain on inspiration, Denies pain with cough and Denies dyspnea Gastrointestinal: Gastrointestinal: Denies abdominal pain, Denies diarrhea, Denies nausea and Denies vomiting Genitourinary: Genitourinary: Reports as per HPI, Reports nocturia, Reports dysuria, Reports urinary hesitancy and Reports urinary urgency Integumentary/Breasts: Skin/Breast: Denies rash Neurologic: Reports system reviewed and no additional complaints, except as documented, Denies vertigo, Denies dizziness and Denies headache(s) Endocrine: Endocrine: Denies fatigue PMFSH Past Medical History Medical History Anxiety Surgical History Surgical History No pertinent past surgical history Family History Family History Mother Family history non-contributory Social History Social History Smoking status: Current every day smoker Tobacco type: e-cigarettes/vaping Alcohol intake: current Alcohol use details: Occasional Substance use type: marijuana Living arrangements: with family Gender identity (if verbalized by the patient): Female Sexual Orientation (if Verbalized by the Patient): Straight or Heterosexual Spiritual care concerns: No Comments At the time of my signature, I reviewed and agree with the nursing past medical, surgical, social, and family history. There is no relevant family history pertinent to the patient complaint. Exam Const: General: cooperative, healthy appearing, no acute distress and well nourished Nutritional Appearance: well nourished Orientation/consciousness: patient oriented x3 Limitations: no limitations HENMT: Head: normal to inspection and normocephalic Ears: external ears normal, TM's normal bilaterally, mastoids normal and Abnormal EAC present Face/Nose/Sinus: normal facial exam Face and sinus: normal facial exam Mouth: Yes Normal oral and palatal mucosa present, Yes oropharynx normal and Yes moist mucous membranes Throat: tonsils normal, uvula midline and no uvular edema Eyes: General: appearance normal, both eyes and all related structures Sclera: sclerae normal Pupils: Equal, round and reactive
== END 2023-06-05 13:53 | disposition home or self-care (01) ==
PROVIDERS: Emergency Provider Registered Nurse; PCP Family Medicine
DX: N30.91 Cystitis, unspecified with hematuria (principal); F17.290 Nicotine dependence, other tobacco product, uncomplicated; F41.9 Anxiety disorder, unspecified
CPT/HCPCS: 81003; 87086; 99213; G0463

== ENCOUNTER 2023-06-25 16:51 | Emergency (ER) | payer OTHER, SELFPAY ==
--- NOTE | 2023-06-25 16:57 | ED.URI ---
HPI - URI/Sore Throat General Chief Complaint: Upper Respiratory Infection Stated Complaint: throat/chills/congestion Time Seen by Provider: 06/25/23 17:13 Source: patient, RN notes reviewed and old records reviewed Mode of arrival: ambulatory Limitations: no limitations History of Present Illness HPI Narrative: 27-year-old female presents to the [facility] with complaints of sore throat, chills, congestion that started yesterday. Pulse menstrual period 25 May, states that she just found out that she is , about 4 weeks Sees an OB at [facility] prior to arrival: none Related Data Home Medications Medication Instructions Recorded Confirmed sertraline 50 mg tablet 50 mg PO DAILY 07/03/20 06/25/23 Allergies Allergy/AdvReac Type Severity Reaction Status Date / Time No Known Allergies Allergy Verified 06/25/23 17:05 Review of Systems Review of Systems: All systems reviewed & are unremarkable except as noted in HPI and below Constitutional: Constitutional: Reports as per HPI, Reports body ache(s), Reports chills, Reports fatigue, Reports fever(s) and Reports headache(s) Eyes: Eyes: Reports no additional eye complaints ENT: Reports system reviewed and no additional complaints, except as documented Cardiovascular: Cardiovascular: Reports no additional cardiovascular complaints, Denies chest pain and Denies dyspnea Respiratory: Respiratory: Reports as per HPI, Denies chest congestion, Reports cough and Denies dyspnea Gastrointestinal: Gastrointestinal: Reports no additional gastrointestinal complaints, Denies abdominal pain, Denies nausea and Denies vomiting Musculoskeletal: Musculoskeletal: Reports no additional musculoskeletal complaints Integumentary/Breasts: Skin/Breast: Reports system reviewed and no additional complaints, except as docu Neurologic: Reports system reviewed and no additional complaints, except as documented Psychiatric: Psychiatric: Reports no additional psychiatric complaints Allergic/Immunologic: Allergic/Immunologic: Reports no additional allergic/immunologic complaints PMFSH Past Medical History Medical History Anxiety Surgical History Surgical History No pertinent past surgical history Family History Family History Mother Family history non-contributory Social History Social History (Reviewed 06/25/23 @ 19:49 by RUFUS Gore Smoking status: Current every day smoker Tobacco type: e-cigarettes/vaping Alcohol intake: current Alcohol use details: Occasional Substance use type: marijuana Living arrangements: with family Gender identity (if verbalized by the patient): Female Sexual Orientation (if Verbalized by the Patient): Straight or Heterosexual Spiritual care concerns: No Comments At the time of my signature, I reviewed and agree with the nursing past medical, surgical, social, and family history. There is no relevant family history pertinent to the patient complaint. Exam Const: General: cooperative, healthy appearing, comfortable, no acute distress, well developed, alert and well nourished Nutritional Appearance: well nourished and obese Orientation/consciousness: patient oriented x3 Limitations: no limitations HENMT: Head: normal to inspection Ears: hearing grossly normal bilaterally, external ears normal, TM's normal bilaterally, EAC's normal, mastoids normal and no periauricular adenopathy Face/Nose/Sinus: Normal external nose present, Normal nares present, Normal nasal mucous membranes and turbinates present, normal facial exam and face symmetric Face and sinus: normal facial exam and face symmetric Mouth: Yes Normal oral and palatal mucosa present, Yes lip normal and Yes moist mucous membranes Throat: posterior oropharynx normal, uvula midline and postn
[2023-06-25 17:00] VITALS: BP 129/93; PULSE 117; RESP 16; TEMP 38.2; O2SAT 100
== END 2023-06-25 17:29 | disposition home or self-care (01) ==
PROVIDERS: Emergency Provider Nurse Practitioner; PCP Family Medicine
DX: J10.1 Influenza due to other identified influenza virus with other respiratory manifestations (principal); Z20.822 Contact with and (suspected) exposure to COVID-19; F17.290 Nicotine dependence, other tobacco product, uncomplicated; F41.9 Anxiety disorder, unspecified
CPT/HCPCS: 87081; 87426; 87804; 87880; 99213; C9803; G0463

== ENCOUNTER 2023-08-16 00:01 | Emergency (ER) | payer OTHER, SELFPAY ==
[2023-08-16 00:10] VITALS: BP 139/92; PULSE 89; RESP 16; TEMP 36.4; O2SAT 100
--- NOTE | 2023-08-16 02:36 | ED.GENADULT ---
HPI - General Adult General Chief complaint: Vaginal Bleeding Stated complaint: 12 weeks preg, vag bleeding Time Seen by Provider: 08/16/23 02:27 History of Present Illness HPI narrative: This is a 27-year-old at approximately joint 12 weeks gestation by last menstrual period presenting for vaginal bleeding. Patient had a small passage of a quarter-sized clot and some pink bleeding. It is now resolved she has some brown bleeding. No abdominal pain. Related Data Home Medications Medication Instructions Recorded Confirmed sertraline 50 mg tablet 50 mg PO DAILY 07/03/20 06/25/23 Allergies Allergy/AdvReac Type Severity Reaction Status Date / Time No Known Allergies Allergy Verified 06/25/23 17:05 PMFSH Past Medical History Medical History Anxiety Surgical History Surgical History No pertinent past surgical history Family History Family History Mother Family history non-contributory Social History Social History Smoking status: Current every day smoker Tobacco type: e-cigarettes/vaping Alcohol intake: current Alcohol use details: Occasional Substance use type: marijuana Living arrangements: with family Gender identity (if verbalized by the patient): Female Sexual Orientation (if Verbalized by the Patient): Straight or Heterosexual Spiritual care concerns: No Exam Narrative: APPEARANCE: No apparent distress. Head: atraumatic. EYES: EOMI, NOSE: Atraumatic NECK: Trachea midline RESPIRATORY: No increased rate of breathing CARDIOVASCULAR: RRR, ABDOMINAL: Non-distended Soft nontender no guarding rebound, point of care OB ultrasound revealed a intrauterine fetus with a normal heart rate. MUSCULOSKELETAl: No obvious deformities NEURO: Alert. Moving 4/4 extremities SKIN:: Warm, dry. Normal color PSYCHIATRIC: Normal affect Course Vital Signs Vital signs: Vital Signs Temperature 97.5 F L 08/16/23 00:10 Pulse Rate 89 08/16/23 00:10 Respiratory Rate 16 08/16/23 00:10 Blood Pressure 139/92 H 08/16/23 00:10 Pulse Oximetry 100 08/16/23 00:10 Oxygen Delivery Room Air 08/16/23 00:10 Temperature 97.5 F L 08/16/23 00:10 Pulse Rate 89 08/16/23 00:10 Respiratory Rate 16 08/16/23 00:10 Blood Pressure 139/92 H 08/16/23 00:10 Pulse Oximetry 100 08/16/23 00:10 Oxygen Delivery Room Air 08/16/23 00:10 Medical Decision Making MDM Narrative Medical decision making narrative: -Course: 27-year-old female at 12 weeks gestation presenting with a brief episode of vaginal bleeding that has since resolved. Point of care ultrasound showed an intrauterine fetus with normal heart rate. Beta hCG 20,000. Rh positive. urine not indicative infection. Pelvic exam showed a closed cervical os. At this time patient will be discharged with close OBGYN follow-up. 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, lives with boyfriend -Stefan -Shared decision making / Disposition: Discharged with close OB follow-up Vital Signs Vital Signs: Vital Signs Temperature 97.5 F L 08/16/23 00:10 Pulse Rate 89 08/16/23 00:10 Respiratory Rate 16 08/16/23 00:10 Blood Pressure 139/92 H 08/16/23 00:10 Pulse Oximetry 100 08/16/23 00:10 Oxygen Delivery Room Air 08/16/23 00:10 Temperature 97.5 F L 08/16/23 00:10 Pulse Rate 89 08/16/23 00:10 Respiratory Rate 16 08/16/23 00:10 Blood Pressure 139/92 H 08/16/23 00:10 Pulse Oximetry 100 08/16/23 00:10 Oxygen Delivery Room Air 08/16/23 00:10 Lab Data 08/16/23 02:43 08/16/23 02:44 Labs:
[2023-08-16 02:57] LABS: Basophils Percent Auto 0.3 % (0.2-1.2); Eosinophils Absolute Auto 0.2 K/mm3 (0-0.3); Eosinophils Percent Auto 1.7 % (0-4.4); Hematocrit 37.1 % (37.0-47.0); Hemoglobin 12.2 g/dL (12.0-15.0); Immature Granulocyte Absolute 0.09 K/mm3 (0.00-0.031); Immature Granulocyte Percent A 0.8 % (0-0.5); Lymphocytes Absolute Auto 3.26 K/mm3 (0.9-3.2); Lymphocytes Percent Auto 27.5 % (18.3-44.2); Mean Corpuscular HGB Conc 32.9 g/dl (32-36); Mean Corpuscular Hemoglobin 28.8 pg (26-34); Mean Corpuscular Volume 87.5 fl (80-100); Mean Platelet Volume 9.6 fl (7.4-10.4); Monocytes Absolute Auto 0.9 K/mm3 (0.1-0.6); Monocytes Percent Auto 7.2 % (2.6-8.5); Neutrophils Absolute Auto 7.4 K/mm3 (1.3-6.7); Neutrophils Percent Auto 62.5 % (45.5-73.1); Platelet Count Result 270 k/mm3 (150-375); Red Blood Count 4.24 M/mm3 (4.2-5.4); Red Cell Distribution Width 13.2 % (11.5-14.5); White Blood Count 11.9 K/mm3 (4.5-10.0)
[2023-08-16 03:05] LABS: Alanine Aminotransferase 18 U/L (6-35); Albumin Level 3.7 g/dL (3.5-5.1); Alkaline Phosphatase 49 U/L (38-126); Anion Gap 9 mmol/L (8-16); Aspartate Amino Transferase 19 U/L (14-36); Bilirubin,Total 0.2 mg/dL (0.2-1.3); Blood Urea Nitrogen 9 mg/dL (7-17); Carbon Dioxide 19 mmol/L (22-30); Chloride 107 mmol/L (98-107); Estimated CRCL calculation 167 ml/min; Estimated Glomerular Filt Rate > 60; Glucose 105 mg/dL (65-110); Potassium 3.7 mmol/L (3.4-5.0); Sodium 135 mmol/L (137-145)
[2023-08-16 04:08] LABS: Appearance Urine Clear (Clear); Bacteria Urine None Seen /hpf; Bilirubin Urine Negative (Negative); Blood Urine 2+ (Negative); Color Urine Yellow (Yellow); Glucose Urine UA Negative (Negative); Ketones Urine Negative (Negative); Leukocyte Esterase Ur Negative LEU/UL (Negative); Nitrate Urine Negative (Negative); Non Pathogenic Casts 0-2; Protein Urine Negative (Negative); Squamous Epithelial Cell Urine Occasional /hpf (Few); WBC Urine 0-5 /hpf; pH Urine 5.5 (5.0-9.0)
[2023-08-16 06:27] LABS: Specific Grav Ur 1.036 (1.001-1.035)
[2023-08-16 06:28] LABS: Add Urine Microscopic? YES
[2023-08-16 06:59] VITALS: PULSE 71; RESP 17; O2SAT 100
== END 2023-08-16 07:00 | disposition home or self-care (01) ==
PROVIDERS: Emergency Provider Emergency Medicine; PCP Family Medicine
DX: O20.9 Hemorrhage in early pregnancy, unspecified (principal); O99.331 Smoking (tobacco) complicating pregnancy, first trimester; F17.290 Nicotine dependence, other tobacco product, uncomplicated; Z3A.12 12 weeks gestation of pregnancy
CPT/HCPCS: 36415; 80053; 81001; 81025; 84702; 85025; 85461; 86850; 86900; 86901; 99284

== ENCOUNTER 2023-08-28 13:42 | Outpatient (CLI) | payer OTHER, SELFPAY ==
--- NOTE | ~2023-08-28 | US_ITS ---
EXAMINATION: US OB <= 14 weeks fetus DATE: 08/28/2023 15:05 INDICATION: Routine care during early second trimester of TECHNIQUE: Real-time pelvic ultrasound utilizing both a transvaginal and transabdominal probe was pe rformed. The interpreting radiologist was not present for the study. COMPARISON: None. FINDINGS: The uterus measures 17.2 x 7.1 x 9.6 cm. There is an intrauterine gestational sac. A yolk sac and fe yana pole are identified. The crown rump length measures 7.6 cm, which correlates with an estimated ge stational age of 13 weeks and 5 days. heart motion is identified measuring 135 beats per minute (bpm) by M-mode Doppler. The placenta is anterior. The bilateral ovaries are not visualized. There i s no free fluid in the pelvis. IMPRESSION: 1. Single living fetus with heart rate of 135 bpm. 2. Gestational age by ultrasound of 13 weeks 5 day(s) +/- 1 week and 2 days with ultrasound estimate d date of delivery (MECHELLE) of 02/28/2024. Reviewed, dictated and finalized at location A. ETRICS TECH IMPRESSION: 1. Single living fetus with heart rate of 135 bpm. 2. Gestational age by ultrasound of 13 weeks 5 day(s) +/- 1 week and 2 days wi th ultrasound estimated date of delivery (MECHELLE) of 02/28/2024.
== END 2023-08-28 13:43 | disposition home or self-care (01) ==
LOC: ANHIMG 13:43
PROVIDERS: PCP Family Medicine; Visit Provider Nurse Practitioner Family
DX: Z34.91 Encounter for supervision of normal pregnancy, unspecified, first trimester (principal); Z3A.13 13 weeks gestation of pregnancy
CPT/HCPCS: 76801

== ENCOUNTER 2023-11-02 12:34 | Outpatient (CLI) | payer OTHER, SELFPAY ==
--- NOTE | ~2023-11-02 | US_ITS ---
EXAMINATION: US OB /maternal detail DATE: 11/02/2023 14:13 INDICATION: Routine care. TECHNIQUE: Real-time ultrasound of the pelvis was performed. COMPARISON: Ultrasound 08/28/2023 FINDINGS: There is a single living fetus in variable presentation. The placenta is anterior, 4.7 cm in the cer vix. The cervical length is 7.6 cm on transabdominal images, which is normal. heart rate is 141 beats per minute (bpm). The amniotic fluid volume is subjectively normal. The deepest vertical pocke t is 4.2 cm, which is normal. The following biometric data were obtained: Biparietal diameter (BPD): 5.8 cm; head circumference (HC): 21.3 cm; abdominal circumference (AC): 18 .9 cm; femur length (FL): 4.1 cm. These measurements are discordant, with low FL/BPD ratio. Estimated weight is 594 g +/- 89 g, which correlates with the 57th percentile when 02/28/24 is us ed as estimated date of delivery. As single measurements, these parameters are each equal to the following estimated gestational ages: BPD: 23 weeks 4 days. HC: 23 weeks 2 days. AC: 23 weeks 5 days. FL: 23 weeks 1 days. estimated gestational age based solely on measurements from this exam is 23 weeks 3 days +/- 1 weeks 4 days. The head anatomy and heart are not well visualized. The diaphragm, stomach, kidneys, and bladde r are normal. There are two umbilical arteries to yield a 3-vessel cord. The cord insertion is normal . IMPRESSION: 1. Single living fetus in variable presentation. 2. Estimated weight is 594 g +/- 89 g, which correlates with the 57th percentile when 02/28/24 i s used as estimated date of delivery. 3. head and heart not well visualized. Otherwise normal anatomic survey. Reviewed, dictated and finalized at location A. IMPRESSION: 1. Single living fetus in variable presentation. 2. Estimated weight is 594 g +/- 89 g, which correlates with the 57th pe rcentile when 02/28/24 is used as estimated date of delivery. 3. head and heart not well visualized. Otherwise normal anatomic cardenas rvey.
== END 2023-11-02 12:35 | disposition home or self-care (01) ==
LOC: ANHIMG 12:35
PROVIDERS: PCP Family Medicine; Visit Provider Nurse Practitioner Family
DX: Z34.90 Encounter for supervision of normal pregnancy, unspecified, unspecified trimester (principal); Z3A.23 23 weeks gestation of pregnancy
CPT/HCPCS: 76805

== ENCOUNTER 2024-01-22 15:37 | Outpatient (CLI) | payer OTHER, SELFPAY ==
--- NOTE | ~2024-01-22 | US_ITS ---
EXAMINATION: US OB follow up DATE: 01/22/2024 16:37 INDICATION: TECHNIQUE: Real-time ultrasound of the pelvis was performed. The interpreting radiologist was not pre sent for the study. COMPARISON: None. FINDINGS: There is a single living fetus in transverse lie with vertex to maternal right presentation. The oleg centa is anterior and not low-lying. heart rate is 123 beats per minute (bpm). The amniotic flu id index is subjectively normal with normal deepest vertical pocket measuring 6.8 cm. The following biometric data were obtained: BPD: 7.5 cm -> 29 weeks 6 days Head circumference: 32.4 cm -> 36 weeks 4 days Abdominal circumference: 32.6 cm -> 36 weeks 3 days Femur length: 7.0 cm -> 36 weeks 0 days These measurements are concordant. Head circumference to abdominal circumference ratio: 1.00 (normal range 0.93-1.11). Estimated weight: 2719 g (+/-) 408 g or 6 lbs. 0 oz. (+/-) 14 oz. IMPRESSION: 1. Single living fetus in transverse lie with vertex to maternal right and with heart rate of 1 23 bpm. 2. Estimated weight is 72nd percentile by Hadlock criteria when 02/28/2024 is used as the estimat ed date of delivery (MECHELLE). Please correlate with clinical information or earlier ultrasounds for most accurate MECHELLE. Reviewed, dictated and finalized at location A. IMPRESSION: 1. Single living fetus in transverse lie with vertex to maternal right and with heart rate of 123 bpm. 2. Estimated weight is 72nd percentile by Hadlock criteria when 02/28/2024 is used as the estimated date of delivery (MECHELLE). Please correlate with clinical information or earlier ultrasounds for most accurate MECHELLE.
== END 2024-01-22 15:38 | disposition home or self-care (01) ==
LOC: ANHIMG 15:37
PROVIDERS: PCP Family Medicine; Visit Provider Obstetrics & Gynecology
DX: Z34.93 Encounter for supervision of normal pregnancy, unspecified, third trimester (principal); Z3A.00 Weeks of gestation of pregnancy not specified
CPT/HCPCS: 76816

== ENCOUNTER 2024-07-11 17:42 | Emergency (ER) | payer OTHER, SELFPAY ==
--- NOTE | 2024-07-11 17:44 | ED_ITS ---
HPI - URI/Sore Throat General Chief Complaint: Upper Respiratory Infection Stated Complaint: throat Time Seen by Provider: 07/11/24 17:57 Source: patient and RN notes reviewed Mode of arrival: ambulatory Limitations: no limitations History of Present Illness HPI Narrative: 28-year-old female presents with concern for sore throat, ear pressure. She reports she was sick last week with nasal congestion, rhinorrhea, felt feverish. Reports those symptoms have mostly improved but she still has a sore throat. She reports she took some multi symptom cold medications that temporarily help. MD elicited complaint: sore throat Related Data Home Medications ?Medication ?Instructions ?Recorded ?Confirmed ?Last Taken ?Type sertraline 50 mg tablet 50 mg PO DAILY 07/03/20 06/25/23 Unknown History Allergies Allergy/AdvReac Type Severity Reaction Status Date / Time No Known Allergies Allergy Verified 06/25/23 17:05 Review of Systems Review of Systems: CONSTITUTIONAL: Denies malaise, chills, sweats, or fever. EYES: Denies visual changes, redness, or discharge. ENT: Reports rhinorrhea, sore throat. CARDIOVASCULAR: Denies chest pain, palpitations, or edema. RESPIRATORY: Denies cough. Denies dyspnea. GASTROINTESTINAL: Denies abdominal pain, nausea, vomiting, diarrhea SKIN: Denies rash or itching. MUSCULOSKELETAL: Denies myalgia. NEUROLOGIC: Denies headache. All systems reviewed & are unremarkable except as noted in HPI and below PMFSH Past Medical History Medical History Anxiety Surgical History Surgical History No pertinent past surgical history Family History Family History Mother Family history non-contributory Social History Social History Smoking status: Current every day smoker Tobacco type: e-cigarettes/vaping Alcohol intake: current Alcohol use details: Occasional Substance use type: marijuana Living arrangements: with family Gender identity (if verbalized by the patient): Female Sexual Orientation (if Verbalized by the Patient): Straight or Heterosexual Spiritual care concerns: No Comments At time of signature, agree with nursing past medical, surgical, social and family history. There is no relevant family history pertinent to the presenting complaint Exam Narrative: GENERAL: Well-appearing, well-nourished, and in no acute distress. HEAD: Normocephalic EYES: PERRLA, conjunctivae clear ENT: Nares clear, turbinates edematous and erythematous, clear discharge. Mucous membranes moist. TM pearly muñoz with dull light reflex bilaterally; no tragal tenderness. Oropharynx not erythematous without lesions. Tonsils not enlarged and without exudate, no drooling, no hoarseness, no trismus, uvula midline. NECK: Supple. No lymphadenopathy CHEST: Clear to auscultation, breath sounds equal. No wheezing, rhonchi, rales, or stridor. No respiratory distress, speaks in full sentences. HEART: Regular rate and rhythm. No murmur heard. SKIN: Warm, dry, no rash. NEURO: Alert and oriented x3. PSYCH: Normal mood and affect Course Course Emergency Course: Patient is aware of diagnosis, understands and agrees to treatment plan. Anticipatory guidance given. Patient agrees to follow-up as directed and is aware of reasons to seek care at the emergency department. Portions of this record may have been created with voice recognition software Level of Care: Express Care Visit Vital Signs Vital signs: Reviewed. MDM - URI/Sore Throat MDM Narrative Medical decision making narrative: Differential diagnosis considered: Francis virus, strep pharyngitis, allergic rhinitis, upper respiratory tract infection, sinusitis, rhinosinusitis, nasopharyngitis. viral pharyngitis, otitis media, otitis externa, pneumonia, bronchitis, viral cough syndrome, viral syndrome, and influenza. Exam findings show no acute concerns or changes; patient is non-toxic appearing and is in no distress. Patient is appropriate for outpatient treatment and follow-up. Lab Data Attestation: I reviewed the patient's lab results. Critical Care Time Critical Care Time Critical Care Time: No Discharge Plan Discharge Clinical Impression: Upper respiratory infection Patient Disposition: Home, Self-Care Condition: Stable Instructions: Upper Respiratory Infection (ED) Additional Instructions: Your rapid strep swab was negative today at [facility]. A throat culture will be sent to the laboratory for further testing. If the test is positive, you will receive a phone call within 48 hours and an appropriate antibiotic will be initiated at that time. Your symptoms are likely due to a viral illness, which is not treated with antibiotics. Viral symptoms can be present for up to a few weeks. -Alternate Tylenol and Motrin per package directions for fever or pain. -Antihistamine medication such as Benadryl at night and Zyrtec during the day can help improve symptoms. -Eat and drink things that are easy to swallow, like tea or soup, or popsicles to suck on. -Oral rinses such as: Salt water gargles and/or may use topical anesthetic (eg. Chloraseptic spray) or lozenges to relieve dryness or throat pain). -Frequent hand washing or hand laborer concrete paving is one of the best ways to prevent spread of infection. -Follow up with primary care provider in 2-3 days if condition is not improving; or seek ER visit if you have trouble breathing, cannot drink enough fluids, have muffled voice, difficulty opening your mouth, or severe swelling. Patient Language: Georgian Prescriptions: New methylprednisolone [Medrol (Eliud)] 4 mg tablets,dose pack See Rx Instructions .ROUTE .COMPLEX Qty: 21 0RF Rx Instructions: orally per package directions No Action sertraline 50 mg Tablet 50 mg PO DAILY Follow-up/Referrals: Adriano,Volodymyr Ya MD [Primary Care Provider] - Time of Disposition: 18:06
[2024-07-11 17:46] VITALS: BP 140/83; PULSE 95; RESP 20; TEMP 37; O2SAT 100
[2024-07-11 18:01] LABS: EDSTREPNEGPOS1 Negative (Negative)
== END 2024-07-11 18:11 | disposition home or self-care (01) ==
PROVIDERS: Emergency Provider Nurse Practitioner; PCP Family Medicine
DX: J06.9 Acute upper respiratory infection, unspecified (principal); F17.290 Nicotine dependence, other tobacco product, uncomplicated; F12.90 Cannabis use, unspecified, uncomplicated; F41.9 Anxiety disorder, unspecified
CPT/HCPCS: 87081; 87880; 99213; G0463

== ENCOUNTER 2025-03-02 00:56 | Day surgery (SDC) | payer OTHER, SELFPAY ==
[2025-02-28 12:05] VITALS: BMI 41.4
--- NOTE | 2025-02-28 12:07 | PC.NURSE ---
Report to the Outpatient Waiting Room, entrance under the green pavilion located off [facility], at time _0845_ on date _[id number]_. Planned Procedure Time: _1045_.? Time changes happen often and if your time is changed the preop area will call you the afternoon before. - You and your visitor will be asked to self-screen and do not enter if you have any COVID symptoms. Please call surgeon if you need to reschedule. - A mask is optional within the hospital at this time. Patients may have clear liquids (water, carbonated beverages, clear teas, apple juice) until 3 hours prior to surgery with a maximum of 20 ounces. - No food from midnight until time of surgery and no smoking, or chewing tobacco (or any form of nicotine). No chewing gum, candy or mints. Take only the following medications with a SIP of water on the morning of surgery: __Sertraline___ DO NOT STOP ANY OF YOUR OTHER PRESCRIPTION MEDICATIONS PRIOR TO SURGERY EXCEPT THE FOLLOWING Hold all vitamins and supplements for 3 days per anesthesiologist. Medications to discontinue per physician Date to take last dose Please no make-up, nail tamazight, hairspray, perfume, deodorant, or body powder the day of surgery.? No jewelry (including any body piercings) or valuables the day of surgery, leave them at home.? Please take a shower or bath the night before, or the morning of, surgery with an antibacterial soap.? Wear comfortable, loose fitting clothing.? - Jewelry must be removed prior to entering the operating room.? Rings and piercings that are not removed may be cut off. - The hospital will not accept responsibility for valuables.? - Please leave all valuables, including medications, at home the day of surgery. If you are going home after surgery, a licensed bus driver supervisor must drive you home.? - NO public transportation without another adult if you receive anesthesia. - We recommend that an adult stay with you for 24 hours following discharge. - We also recommend that you do not drive, make important decision, drink alcoholic beverages, or take any drugs that were not prescribed by your health care provider for at least 24 hours after your discharge time. Follow any additional instructions given to you from your surgeon. Telephone instructions given to __Maya___and asked if any additional questions and then verbalized understanding. Patient advised to call surgeon office or pre surgery nurse liaison [phone] if any additional questions.
--- NOTE | 2025-02-28 13:10 | PM.IMHP ---
H&P: HPI History of Present Illness Date/Time: 02/28/25 13:10 Chief Complaint: Missed Narrative: 29-year-old 4 para 2 whose last menstrual period with approximately 16 weeks ago presents with a 12 week intrauterine demise. She recently transferred 1st visit was noted to have a 12 week demise she was offered watchful waiting are considering dilatation curettage on opted for the latter risks and benefits great detail Review of Systems Review of Systems: CONSTITUTIONAL: Denies malaise, chills, sweats, or fever. EYES: Denies visual changes, redness, or discharge. ENT: Reports rhinorrhea, sore throat. CARDIOVASCULAR: Denies chest pain, palpitations, or edema. RESPIRATORY: Denies cough. Denies dyspnea. GASTROINTESTINAL: Denies abdominal pain, nausea, vomiting, diarrhea SKIN: Denies rash or itching. MUSCULOSKELETAL: Denies myalgia. NEUROLOGIC: Denies headache. All systems reviewed & are unremarkable except as noted in HPI and below PMFSH Past Medical History Medical History Anxiety Surgical History Surgical History No pertinent past surgical history Family History Family History Mother Family history non-contributory Social History Social History Years smoked: 4 Smoking status: Former smoker Tobacco type: cigarettes and e-cigarettes/vaping Smoking end date: 02/29/20 Additional smoking assessment comments: Currently vaping Alcohol intake: current Alcohol use details: Occasional Substance use type: marijuana Other substance usage details: From time to time. Living arrangements: with family Gender identity (if verbalized by the patient): Female Sexual Orientation (if Verbalized by the Patient): Straight or Heterosexual Spiritual care concerns: No Meds Home Medications and Allergies Home Medications ?Medication ?Instructions ?Recorded ?Confirmed ?Type sertraline 50 mg tablet 50 mg PO DAILY 07/03/20 02/28/25 History Allergies Allergy/AdvReac Type Severity Reaction Status Date / Time No Known Allergies Allergy Verified 02/28/25 11:58 Exam Const: General: cooperative, healthy appearing and comfortable Nutritional Appearance: overweight Orientation/consciousness: oriented to person, oriented to place and oriented to time Resp: Effort & Inspection: normal respiratory effort Cardio: Rate: regular rate Rhythm: regular rhythm Heart sounds: S1 normal heart sound present and S2 normal heart sound present GI: Inspection: normal to inspection : External Female Exam: normal external appearance Speculum Exam - Vagina: normal appearance of the vagina Speculum Exam - Cervix: normal appearance of the cervix Bimanual exam- vagina & uterus: enlarged Bimanual Exam- Adnexa, other: normal adnexae Assessment and Plan Assessment and plan (1) Missed : Code(s): O02.1 - Missed Status: Acute Plan Proceed with suction dilatation and curettage
--- NOTE | 2025-03-02 05:45 | WPDHPUPDATE1 ---
History and Physical Update Update Date/Time: 03/02/25 05:45 History and Physical has been reviewed, including an updated exam of the patient. There are NO changes in the patient's condition. Risks, benefits, and alternatives have been discussed and questions answered. Patient agrees to proceed with procedure.
[2025-03-02 09:30] VITALS: BP 136/93; PULSE 82; RESP 16; TEMP 36.6; O2SAT 100
[2025-03-02] MEDS: LACTATED RINGERS 1,000 ML 30 ML IV CONT (09:30)
[2025-03-02 09:39] LABS: Hematocrit 39.3 % (37.0-47.0); Hemoglobin 13.1 g/dL (12.0-15.0)
--- NOTE | 2025-03-02 09:56 | WPDANESEPPF ---
Anes - Initial Pre Proc Eval Procedure: Operation Date: 03/02/25 10:30 Proposed Procedures p Suction Dilatation and Curettage - Rajat Cortez MD Date/Time: 03/02/25 09:56 Surgeon: Rajat Cortez MD Pre Op Diagnosis: missed AB Patient Data Age: 29 Gender: F Height: 1.63 m Weight: 109.5 kg Allergies Allergy/AdvReac Type Severity Reaction Status Date / Time No Known Allergies Allergy Verified 02/28/25 11:58 Home Medications ?Medication ?Instructions ?Recorded ?Confirmed ?Type sertraline 50 mg tablet 50 mg PO DAILY 07/03/20 02/28/25 History hydrocodone 5 mg-acetaminophen 325 1 tablet PO Q4H PRN pain #20 tabs 03/02/25 Rx mg tablet Laboratory Tests 03/02/25 09:15 Hgb 13.1 g/dL (12.0-15.0) Hct 39.3 % (37.0-47.0) Blood Type Pending Antibody Screen Pending Doses of RhIg Required Pending Patient hx anesthesia problems: none Family hx anesthesia problems: none Results Review: All pre-operative results and documents have been reviewed as part of the pre-operative evaluation. [facility] Past Medical History Medical History Anxiety Surgical History Surgical History No pertinent past surgical history Family History Family History Mother Family history non-contributory Social History Social History Years smoked: 4 Smoking status: Former smoker Tobacco type: cigarettes and e-cigarettes/vaping Smoking end date: 02/29/20 Additional smoking assessment comments: Currently vaping Alcohol intake: current Alcohol use details: Occasional Substance use type: marijuana Other substance usage details: From time to time. Living arrangements: with family Gender identity (if verbalized by the patient): Female Sexual Orientation (if Verbalized by the Patient): Straight or Heterosexual Spiritual care concerns: No Anes - Eval Final PreProcedure Day of Procedure 03/02/25 09:56 Patient weight: morbidly obese Heart: regular rate and rhythm Lungs: clear to auscultation Airway: Mallampati scale class II Neurological: alert and oriented Last oral intake: >/= 8 hours ASA classification: III Emergent: no Anesthetic plan: proceed Anesthesia type and monitoring: general GIVS and standard monitoring Results Review: All pre-operative results and documents have been reviewed as part of the pre-operative evaluation. Informed Consent: The patient's anesthetic plan and its attendant risks and benefits were discussed with the patient/family/POA. Questions were solicited and answers provided to the satisfaction of the patient/family/POA.
[2025-03-02] MEDS: ACETAMINOPHEN 500 MG TABLET 1000 MG PO (10:02)
[2025-03-02] MEDS: LIDOCAINE 1% LOCAL INJ 10 ML VIAL INFILTRATE (10:44)
--- NOTE | 2025-03-02 10:54 | S_PTH ---
PATIENT: Maya Nova LOC: [facility] U#:[id number] AGE/SX: 29/F ROOM: RE03/02/[address]: Rajat Cortez MD : 1995 BED: DIS: 03/02/2025 SPEC #: [id number] RECD: 03/02/25 11:05 STATUS: HEAVEN REQ #: [id number] MARYANNE: 03/02/25 10:[address]: Rajat Renae DEPT: [facility] RECD BY: Rosario Soriano ENTERED: 03/02/25 11:06 SP TYPE: Surgical OTHR DR: Volodymyr OhMD Tissues: A - Products of Conception Procedures: Hematoxylin and Eosin Stain Gross and Microscopic Level 4
[2025-03-02] MEDS: KETOROLAC 30 MG/ML VIAL (*BKC) IV PUSH (11:00)
--- NOTE | 2025-03-02 11:03 | W.PM.PROC2 ---
Procedure Note - Detailed Date of Procedure 03/02/25 Pre-op Diagnosis missed AB Post-op Diagnosis Same Procedure Performed Suction dilatation curettage Surgeon Rajat Cortez MD Anesthesia MAC and Local Indications 29 first-trimester missed A/B Findings Uterus sounded to 12. Tissue consistent products of conception Description of Procedure Patient is prepped draped in normal sterile fashion placed in dorsal lithotomy position. Excellent sedation weighted speculum placed posterior fornix anterior lip of the cervix grasped with single-tooth tenaculum. 2.5cc % xylocaine seizure distributed at 2, 4, 8, 10:00 a.m. the cervix uterus sounded to 12cm. Serial dilatation fragmented followed passes the 12. Suction curette large amount and placental tissue was. When a good grating sound was heard the instruments withdrawn the patient was awakened went to recovery in satisfactory condition. All sponge, needle, instrument counts were correct. There were no immediate complications Estimated Blood Loss 100 Drains No Packing No Pathology Yes Complications No immediate complications Condition Stable Disposition PACU
[2025-03-02 11:05] VITALS: BP 131/56; PULSE 73; RESP 14; O2SAT 100
[2025-03-02 11:35] VITALS: BP 144/86; PULSE 72
[2025-03-02] MEDS: oxyCODONE HCL (*CRX) 5 MG TAB IR PO (11:52)
[2025-03-02 12:05] VITALS: BP 137/78; PULSE 70
[2025-03-02 12:20] VITALS: BP 135/72; PULSE 83
== END 2025-03-02 12:26 | disposition home or self-care (01) ==
PROVIDERS: PCP Family Medicine; Visit Provider Obstetrics & Gynecology
PROC: (CPT 59820; principal; 2025-03-02 10:30)
DX: O02.1 Missed abortion (principal); F41.9 Anxiety disorder, unspecified; F17.290 Nicotine dependence, other tobacco product, uncomplicated; F12.90 Cannabis use, unspecified, uncomplicated; Z79.891 Long term (current) use of opiate analgesic
CPT/HCPCS: 59820; 36415; 85014; 85018; 85461; 86850; 86900; 86901; 88305; A9270; J1100; J1885; J2003; J2210; J2250; J2405; J2704; J3010; J7120